=== PATIENT | female | born 1960 | race Caucasian/White ===

== ENCOUNTER 2020-04-17 16:29 | Emergency (ER) | payer OTHER ==
[2020-04-17] MEDS ORDERED: VOLTAREN **OUT50 MG PO (18:28)
== END 2020-04-17 18:50 | disposition home or self-care (01) ==
LOC: FER 16:29
DX: M17.12 Unilateral primary osteoarthritis, left knee (principal); M51.36 Other intervertebral disc degeneration, lumbar region; I10 Essential (primary) hypertension; E11.9 Type 2 diabetes mellitus without complications; F17.200 Nicotine dependence, unspecified, uncomplicated
CPT/HCPCS: 72110; 73564; J1885

== ENCOUNTER 2020-10-15 14:31 | Emergency (ER) | payer OTHER ==
[~2020-10-15 14:31] MED LIST: VOLTAREN **OUT50 MG PO
[2020-10-15 17:50] LABS: BASOPHIL 0.5 % (0-2); EOSINOPHIL 2.5 % (0-5); HCT 36.4 % (37.0-47.0); HGB 12.1 g/dl (12.5-16.0); MCH 31.7 pg (25.0-31.0); MCHC 33.2 g/dL (32.0-36.0); MCV 95.3 fL (78.0-100.0); MONOCYTE 5.1 % (0-12); MPV 9.5 fL (6.0-9.5); NEUTROPHIL 48.2 % (41-80); NRBC 0; PLT 282 K/uL (150-400); RBC 3.82 M/uL (4.20-5.40); RDW 12.3 % (11.5-14.0); WBC 10.5 K/uL (4.0-10.5)
[2020-10-15 17:55] LABS: INR 1.04 (0.9-1.2); PTT 38.6 SECONDS (24.4-34.7)
[2020-10-15 17:57] LABS: LYMPHOCYTE 43.2 % (15-48)
[2020-10-15 18:01] LABS: BILIRUBIN - TOTAL 0.2 mg/dL (0.2-1.0); CREATININE 1.25 mg/dL (0.51-0.95); GLOBULIN (CALCULATION) 4.2 g/dL; POTASSIUM 4.9 mmol/L (3.5-5.1); TOTAL PROTEIN 8.2 g/dL (6.4-8.2)
== END 2020-10-15 19:27 | disposition home or self-care (01) ==
LOC: FER 14:31
PROVIDERS: Emergency Medicine
DX: R55 Syncope and collapse (principal); E11.22 Type 2 diabetes mellitus with diabetic chronic kidney disease; N18.9 Chronic kidney disease, unspecified; F17.210 Nicotine dependence, cigarettes, uncomplicated; Z86.79 Personal history of other diseases of the circulatory system
CPT/HCPCS: 36415; 70450; 71046; 72125; 80053; 84484; 85025; 85610; 85730; 93005